=== PATIENT | female | born 1945 | race Caucasian/White ===

== ENCOUNTER 2025-07-29 08:04 | Inpatient (IN) | payer MEDICARE ==
[2025-07-29 09:41] LABS: Hematocrit 38.7 % (34.1-44.9); Hemoglobin 12.5 g/dL (11.2-15.7); Mean Corpuscular Hemoglobin 27.4 pg (25.6-32.2); Mean Corpuscular Hgb Concent. 32.3 g/dL (32.2-35.5); Platelet Count 434 x10^3/uL (182-369); Red Blood Count 4.57 x10^6/uL (3.93-5.22); White Blood Count 9.2 x10^3/uL (3.98-10.04)
[2025-07-29] MEDS ORDERED: Docusate Sodium 100 MG PO PRN (09:54)
[2025-07-29] MEDS ORDERED: TYLENOL 325 MG PO PRN (09:54)
[2025-07-29] MEDS ORDERED: Zofran 4 MG/2 ML VIAL IV PRN (09:54)
[2025-07-29 10:03] LABS: Calcium 9.2 mg/dL (8.4-10.2); Carbon Dioxide 25.0 mmol/L (22-30); Creatinine 1 0.61 mg/dL (0.52-1.04); EST GLOMERULAR FILTRATION RATE 92.0 ML/MIN; Glucose 230.0 mg/dL (74-106); Potassium 4.2 mmol/L (3.5-5.1); SGOT/AST 21.0 U/L (14-36); SGPT/ALT 15.0 U/L (0-35); Total Protein 7.7 g/dL (6.3-8.2)
[2025-07-29] MEDS: MORPHINE SULFATE 2 MG INJ IV PRN (10:11)
[2025-07-29] MEDS: Protonix 40MG Tablet PO SCH (10:12)
[2025-07-29] MEDS: Zestril 10 MG PO SCH (11:41)
[2025-07-29] MEDS ORDERED: Versed 2 MG/2 ML Injection ONE (12:32)
[2025-07-29] MEDS ORDERED: SUBLIMAZE 100 MCG/2 ML ONE (12:32)
[2025-07-29] MEDS ORDERED: ROCURONIUM BROMIDE IV ONE (12:33)
[2025-07-29] MEDS ORDERED: Zofran 4 MG/2 ML VIAL ONE (12:33)
[2025-07-29] MEDS ORDERED: Xylocaine-Mpf 2% 5 Ml Vial ONE (12:33)
[2025-07-29] MEDS ORDERED: propofoL IV ONE (12:33)
[2025-07-29] MEDS ORDERED: EXPAREL 133 MG/10 ML VIAL IJ ONE (12:37)
[2025-07-29] MEDS ORDERED: Marcaine Mpf 0.5% Vial 30 Ml ONE (12:37)
[2025-07-29] MEDS ORDERED: Epinephrine Preservative Free 1 MG/ML ONE (12:40)
[2025-07-29] MEDS ORDERED: Naropin 0.5% 30 ML VIAL ONE (12:40)
[2025-07-29] MEDS ORDERED: BRIDION 200MG/2ML IV ONE (13:22)
[2025-07-29] MEDS ORDERED: Ephedrine Sulfate 50 MG/ML ONE (13:22)
--- NOTE | 2025-07-29 13:59 | PCM.HP ---
History of Present Illness - Chief Complaint Chief Complaint: fractured ankle right Date: 07/29/25 History of Present Illness: is a 79 year old female with pmhx of dementia, strokes, cataracts, Type II DM, cirrhosis, and obesity. She is a direct admit today by podiatry for right ankle revision. The plan is for surgery today. Post op she will go to rehab. She denies any further concerns today other than right ankle pain. IVF started today prior to procedure by OR. - Review of Systems Constitutional: No Fever, No Chills Eyes: No Symptoms Ears, Nose, & Throat: No Symptoms Respiratory: No Cough, No Short Of Breath Cardiac: No Chest Pain, No Edema, No Syncope Abdominal/Gastrointestinal: No Abdominal Pain, No Nausea, No Vomiting, No Diarrhea Genitourinary Symptoms: No Dysuria Musculoskeletal: Joint Pain (Right ankle), No Back Pain, No Neck Pain Skin: No Rash Neurological: No Dizziness, No Focal Weakness, No Sensory Changes Psychological: No Symptoms Endocrine: No Symptoms Hematologic/Lymphatic: No Symptoms Immunological/Allergic: No Symptoms Medications & Allergies Home Medications: Home Medication List Ketorolac Trometh 10 mg Tab [TORAdol 10 MG TABLET] 10 mg PO TID 5 Days #15 tablet 07/20/25 [Rx Confirmed 07/26/25] Aspirin EC 325 mg [Ecotrin 325 MG] 325 mg PO DAILY 07/29/25 [History Confirmed 07/29/25] Allergies/Adverse Reactions: Allergies Allergy/AdvReac Type Severity Reaction Status Date / Time No Known Drug Allergies Allergy Verified 07/26/25 09:49 - Past Medical History Past Medical History: Yes Neurological History: Dementia, Stroke ENT History: Cataracts Cardiac History: No Pertinent History Respiratory History: No Pertinent History Endocrine Medical History: Diabetes Type II Musculoskelatal History: Fractures GI Medical History: Cirrhosis History: No Pertinent History Pyscho-Social History: No Pertinent History Reproductive Disorders: No Pertinent History - Past Surgical History Past Surgical History: Yes Neuro Surgical History: No Pertinent History Cardiac History: No Pertinent History Respiratory Surgery: No Pertinent History GI Surgical History: Cholecystectomy Genitourinary Surgical Hx: No Pertinent History Musculskeletal Surgical Hx: No Pertinent History Female Surgical History: Hysterectomy Significant Family History: no pertinent family hx - Social History Smoking Status: Never smoker Exposure to second hand smoke: No Alcohol: None Drug Use: none - Social Determinants of Health Will the patient participate in the screening: Yes Do you worry about a steady place to live?: No Do you have any problems with any of the following?: No known problems In the past 12 months,have you had to go without utilities?: No Have you or anyone in your house had to go without enough: No Transportation Issues: No Has anyone in your support network made you feel unsafe?: No Does the patient want assistance with any of the above?: No - Physical Exam Vital Signs: Vital Signs - 24 hr Temp Pulse Resp BP Pulse Ox 07/29/25 09:54 187/76 07/29/25 09:49 97.9 F 83 96 07/29/25 08:46 97.9 F 83 96 07/29/25 08:42 97.9 F 83 96 General Appearance: no apparent distress, alert Neurologic Exam: alert, oriented x 3, cooperative, normal mood/affect, nml c erebellar function, nml station & gait, sensation nml, No motor deficits Eye Exam: PERRL/EOMI, eyes nml inspection Ears, Nose, Throat Exam: normal ENT inspection, TMs normal, pharynx normal, moist mucous membranes Neck Exam: normal inspection, non-tender, supple, full range of motion Respiratory Exam: normal breath sounds, lungs clear, No respiratory distress Cardiovascular Exam: regular rate/rhythm, normal heart sounds, normal peripheral pulses Gastrointestinal/Abdomen Exam: soft, normal bowel sounds, No tenderness, No mass Back Exam: normal inspection, normal range of motion, No CVA tenderness, No vertebral tenderness Extremity Exam: normal inspection, pelvis stable, limited range of motion (right ankle), tenderness (right ankle) Skin Exam: normal color, warm, dry, No rash Lymphatic Exam: No adenopathy Results - Labs Lab/Micro Results: Lab Results-Last 24 Hours 07/29/25 07/29/25 07/29/25 Range/Units 09:03 09:03 11:01 WBC 9.2 (3.98-10.04) x10^3/uL RBC 4.57 (3.93-5.22) x10^6/uL Hgb 12.5 (11.2-15.7) g/dL Hct 38.7 (34.1-44.9) % MCV 84.7 (79.4-94.8) fL MCH 27.4 (25.6-32.2) pg MCHC 32.3 (32.2-35.5) g/dL RDW 13.0 (11.7-14.4) % Plt Count 434 H (182-369) x10^3/uL MPV 9.8 (9.4-12.3) fL Sodium 142 (135-145) mmol/L Potassium 4.2 (3.5-5.1) mmol/L Chloride 106 (98-107) mmol/L Carbon Dioxide 25 (22-30) mmol/L Anion Gap 15.5 H (5-15) MEQ/L BUN 21 H (7-17) mg/dL Creatinine 0.61 (0.52-1.04) mg/dL Estimated GFR 92.0 ML/MIN Glucose 230 H (74-106) mg/dL POC Glucometer 192 H (74 to 106) mg/dL Calcium 9.2 (8.4-10.2) mg/dL Total Bilirubin 0.60 (0.2-1.3) mg/dL AST 21 (14-36) U/L ALT 15 (0-35) U/L Alkaline Phosphatase 118 (38-126) U/L Serum Total Protein 7.7 (6.3-8.2) g/dL Albumin 4.2 (3.5-5.0) g/dL Prealbumin 12.58 L (17.6-36.0) mg/dL Accuchecks Date 07/29/25 Date 07/29/25 Time 11:46 - Radiology Impressions Radiology Exams & Impressions: Radiology Procedures Category Date Time Status ANKLE (3 VIEWS) Routine Exams 07/29/25 08:33 Ordered CHEST 1 VIEW (PORTABLE) Urgent Exams 07/29/25 12:22 Ordered FLUOROSCOPY UP TO 1 HR Routine Exams 07/29/25 08:33 Ordered Assessment/Plan (1) Bimalleolar ankle fracture Current Visit: No Status: Acute Qualifiers: Encounter type: subsequent encounter Laterality: right Assessment & Plan: - Revision per podiatry- surgery scheduled today - Podiatry consult - Narcotic pain medication IV as pt is currently NPO - PT eval and treat- post OP Code(s): S82.843A - DISPLACED BIMALLEOLAR FRACTURE OF UNSP LOWER LEG, INIT (2) Type II diabetes mellitus Current Visit: Yes Status: Chronic Qualifiers: Diabetes mellitus intermodal dispatcher insulin use: without intermodal dispatcher use Diabetes mellitus complication detail: with cataract Assessment & Plan: - A1C 11.18 on 07/22/25 and pt is not taking any diabetic meds at home- will need to d/c with insulin until less glucose toxic- uncontrolled - Diabetic education provided however pt has dementia - Plan is to d/c to rehab when able to discharge - Accucheck AC/HS - Humalog s/s (3) Dehydration Current Visit: Yes Status: Acute Assessment & Plan: - Anion gap 15.5 - IVF started by OR Code(s): E86.0 - DEHYDRATION (4) HTN (hypertension) Current Visit: Yes Status: Acute Assessment & Plan: - 2:2 pain? - Narcotic pain med- IV for now as NPO - Lisinopril started as pain medication did not bring it down much VTE: SCD's PPI: Protonix Next of KIN: Daughter- Yareli Paez [phone] Code status: SCO/DNR D/C plan: per podiatry Plan of care time > 45 minutes Code(s): I10 - ESSENTIAL (PRIMARY) HYPERTENSION
--- NOTE | 2025-07-29 14:32 | XRAY ---
Indication: Right ORIF surgery by malleolar fracture and arthroscopy. Intraoperative fluoroscopy provided for 4 minute 11 seconds. 20 digital spot images submitted for interpretation ultimately demonstrates ORIF surgery of bimalleolar fractures with intact fixation hardware. Both fracture apposition/alignment near anatomic. Correlate with intraoperative findings/report.
[2025-07-29] MEDS ORDERED: DEXMEDETOMIDINE 80 MCG/20ML-NS IV ONE (14:35)
--- NOTE | 2025-07-29 15:20 | XRAY ---
Indication: detention placement. Comparison: None Portable chest inflated and clear. Heart not enlarged. Bony thorax intact with osteopenia, mild degenerative changes, and minimal dextroscoliosis. Impression: Nonacute chest with chronic bony findings.
--- NOTE | 2025-07-29 15:22 | XRAY ---
Four minutes and 11 seconds of fluoroscopy was used in surgery for a right ORIF surgery by malleolar fracture and arthroscopy.
[2025-07-29] MEDS ORDERED: CEFOXITIN 2 GM/100 ML NACL IVPB 2 GM/100 ML IVPB IV ONE (15:33)
[2025-07-29] MEDS ORDERED: Lactated Ringers 1,000 ML IV ONE (15:34)
[2025-07-29] MEDS: Levofloxacin 500 MG Tablet PO SCH (17:59)
[2025-07-30] MEDS: APRESOLINE 20 MG/ML INJ IV ONE (00:04)
[2025-07-30 05:41] LABS: Hematocrit 37.2 % (34.1-44.9); Hemoglobin 11.5 g/dL (11.2-15.7); Mean Corpuscular Hemoglobin 26.9 pg (25.6-32.2); Mean Corpuscular Hgb Concent. 30.9 g/dL (32.2-35.5); Platelet Count 393 x10^3/uL (182-369); Red Blood Count 4.28 x10^6/uL (3.93-5.22); White Blood Count 12.6 x10^3/uL (3.98-10.04)
[2025-07-30 06:04] LABS: Calcium 8.6 mg/dL (8.4-10.2); Carbon Dioxide 24.0 mmol/L (22-30); Creatinine 1 0.66 mg/dL (0.52-1.04); EST GLOMERULAR FILTRATION RATE 90.3 ML/MIN; Glucose 157.0 mg/dL (74-106); Potassium 3.6 mmol/L (3.5-5.1); SGOT/AST 24.0 U/L (14-36); SGPT/ALT 17.0 U/L (0-35); Total Protein 6.9 g/dL (6.3-8.2)
--- NOTE | 2025-07-30 06:46 | PCM.CONS ---
Podiatry HPI - Consult Date of Consultation Date: 07/29/25 Reason for Consult: Acute trimalleolar fracture from [place] right ankle, dementia Consulting Provider: RADHA PAGAN DPM - [facility] History of Present Illness: Velma is a very plesant 79-year-old female with a history of subjective stroke and diminished memory presents to our emergency department on July 20, 2025, for evaluation of pain in her right ankle. She explains that while descending the steps on earlier that day, her foot got caught on the edge of one step, causing her to fall down three steps. She hit the back of her head but did not lose consciousness and has no neck pain. The cervical spine has been clinically cleared. The patient describes her right ankle pain as a 6 out of 10, worsening with movement and weight-bearing. A CT scan of the head was ordered, but she declined it, expressing that she only wants her ankle treated. She is not on any blood thinners, and her daughter in law is at bedside. They have no other complaints or concerns at this time.The fall was mechanical and not associated with any neurological or cardiovascular symptoms. There is no chest pain, shortness of breath, nausea, vomiting, diaphoresis, or any numbness, tingling, or weakness. Plan for surgery today for ORIF. Medications & Allergies Home Medications: Home Medication List Ketorolac Trometh 10 mg Tab [TORAdol 10 MG TABLET] 10 mg PO TID 5 Days #15 tablet 07/20/25 [Rx Confirmed 07/26/25] Aspirin EC 325 mg [Ecotrin 325 MG] 325 mg PO DAILY 07/29/25 [History Confirmed 07/29/25] Allergies/Adverse Reactions: Allergies Allergy/AdvReac Type Severity Reaction Status Date / Time No Known Drug Allergies Allergy Verified 07/26/25 09:49 - Past Medical History Past Medical History: Yes Neurological History: Dementia, Stroke ENT History: Cataracts Cardiac History: No Pertinent History Respiratory History: No Pertinent History Endocrine Medical History: Diabetes Type II Musculoskelatal History: Fractures GI Medical History: Cirrhosis History: No Pertinent History Pyscho-Social History: No Pertinent History Reproductive Disorders: No Pertinent History - Past Surgical History Past Surgical History: Yes Neuro Surgical History: No Pertinent History Cardiac History: No Pertinent History Respiratory Surgery: No Pertinent History GI Surgical History: Cholecystectomy Genitourinary Surgical Hx: No Pertinent History Musculskeletal Surgical Hx: No Pertinent History Female Surgical History: Hysterectomy Significant Family History: no pertinent family hx - Social History Smoking Status: Never smoker Exposure to second hand smoke: No Alcohol: None Drug Use: none - Social Determinants of Health Will the patient participate in the screening: Yes Do you worry about a steady place to live?: No Do you have any problems with any of the following?: No known problems In the past 12 months,have you had to go without utilities?: No Have you or anyone in your house had to go without enough: No Transportation Issues: No Has anyone in your support network made you feel unsafe?: No Does the patient want assistance with any of the above?: No Physical Exam - Narrative Narrative Physical Exam: Ecchymosis present medially, laterally, and posteriorly. No open wounds identified; skin intact though without notable tension over the medial malleolus. Palpation demonstrates significant tenderness to the medial malleolus, distal fibula/lateral malleolus, and posterior tibia/posterior malleolus. Crepitus present with gentle manipulation. Compartments soft and compressible. Range of motion not tested due to pain. Gross instability suspected. Neurovascular exam: dorsalis pedis and posterior tibial pulses palpable, capillary refill <2 seconds. Sensation intact to superficial peroneal, deep peroneal, tibial, and sural nerve distributions. Motor exam deferred secondary to pain but gross toe movement observed. No proximal fibular tenderness appreciated. Results - Labs Lab/Micro Results: Lab Results-Last 24 Hours 07/29/25 07/29/25 07/29/25 Range/Units 09:03 09:03 11:01 WBC 9.2 (3.98-10.04) x10^3/uL RBC 4.57 (3.93-5.22) x10^6/uL Hgb 12.5 (11.2-15.7) g/dL Hct 38.7 (34.1-44.9) % MCV 84.7 (79.4-94.8) fL MCH 27.4 (25.6-32.2) pg MCHC 32.3 (32.2-35.5) g/dL RDW 13.0 (11.7-14.4) % Plt Count 434 H (182-369) x10^3/uL MPV 9.8 (9.4-12.3) fL Sodium 142 (135-145) mmol/L Potassium 4.2 (3.5-5.1) mmol/L Chloride 106 (98-107) mmol/L Carbon Dioxide 25 (22-30) mmol/L Anion Gap 15.5 H (5-15) MEQ/L BUN 21 H (7-17) mg/dL Creatinine 0.61 (0.52-1.04) mg/dL Estimated GFR 92.0 ML/MIN Glucose 230 H (74-106) mg/dL POC Glucometer 192 H (74 to 106) mg/dL Calcium 9.2 (8.4-10.2) mg/dL Total Bilirubin 0.60 (0.2-1.3) mg/dL AST 21 (14-36) U/L ALT 15 (0-35) U/L Alkaline Phosphatase 118 (38-126) U/L Serum Total Protein 7.7 (6.3-8.2) g/dL Albumin 4.2 (3.5-5.0) g/dL Prealbumin 12.58 L (17.6-36.0) mg/dL 07/29/25 07/29/25 07/30/25 Range/Units 16:52 22:17 05:30 WBC 12.6 H (3.98-10.04) x10^3/uL RBC 4.28 (3.93-5.22) x10^6/uL Hgb 11.5 (11.2-15.7) g/dL Hct 37.2 (34.1-44.9) % MCV 86.9 (79.4-94.8) fL MCH 26.9 (25.6-32.2) pg MCHC 30.9 L (32.2-35.5) g/dL RDW 13.2 (11.7-14.4) % Plt Count 393 H (182-369) x10^3/uL MPV 9.9 (9.4-12.3) fL Sodium (135-145) mmol/L Potassium (3.5-5.1) mmol/L Chloride (98-107) mmol/L Carbon Dioxide (22-30) mmol/L Anion Gap (5-15) MEQ/L BUN (7-17) mg/dL Creatinine (0.52-1.04) mg/dL Estimated GFR ML/MIN Glucose (74-106) mg/dL POC Glucometer 162 H 156 H (74 to 106) mg/dL Calcium (8.4-10.2) mg/dL Total Bilirubin (0.2-1.3) mg/dL AST (14-36) U/L ALT (0-35) U/L Alkaline Phosphatase (38-126) U/L Serum Total Protein (6.3-8.2) g/dL Albumin (3.5-5.0) g/dL Prealbumin (17.6-36.0) mg/dL 07/30/25 Range/Units 05:30 WBC (3.98-10.04) x10^3/uL RBC (3.93-5.22) x10^6/uL Hgb (11.2-15.7) g/dL Hct (34.1-44.9) % MCV (79.4-94.8) fL MCH (25.6-32.2) pg MCHC (32.2-35.5) g/dL RDW (11.7-14.4) % Plt Count (182-369) x10^3/uL MPV (9.4-12.3) fL Sodium 137 (135-145) mmol/L Potassium 3.6 (3.5-5.1) mmol/L Chloride 102 (98-107) mmol/L Carbon Dioxide 24 (22-30) mmol/L Anion Gap 14.5 (5-15) MEQ/L BUN 14 (7-17) mg/dL Creatinine 0.66 (0.52-1.04) mg/dL Estimated GFR 90.3 ML/MIN Glucose 157 H (74-106) mg/dL POC Glucometer (74 to 106) mg/dL Calcium 8.6 (8.4-10.2) mg/dL Total Bilirubin 0.70 (0.2-1.3) mg/dL AST 24 (14-36) U/L ALT 17 (0-35) U/L Alkaline Phosphatase 105 (38-126) U/L Serum Total Protein 6.9 (6.3-8.2) g/dL Albumin 3.8 (3.5-5.0) g/dL Prealbumin (17.6-36.0) mg/dL Accuchecks Date 07/29/25 Date 07/29/25 Time 11:46 - Radiology Impressions Radiology Exams & Impressions: Radiology Procedures Category Date Time Status ANKLE (3 VIEWS) Routine Exams 07/29/25 08:33 Completed CHEST 1 VIEW (PORTABLE) Urgent Exams 07/29/25 12:22 Completed FLUOROSCOPY UP TO 1 HR Routine Exams 07/29/25 08:33 Completed - Other Procedures and Tests Respiratory Therapy 07/29/25 17:15 Oxygen Nasal Cannula 3 lpm Assessment/Plan (1) Trimalleolar fracture of ankle, closed Current Visit: Yes Status: Acute Assessment & Plan: ORIF right ankle with syndesmotic reduction today in OR The patient will be admitted for management of the right trimalleolar ankle fracture under care of Dr. Jaime and Senait SMALL. Given the patients current non-ambulatory status and baseline dementia, formal rehabilitation placement will be required for safety and mobility training. Pain control will be continued as prescribed, and DVT prophylaxis will be maintained per orders. Infection prophylaxis as prescribed. The patient is to remain strictly non-weightbearing on the right lower extremity. Skin integrity and swelling will be closely monitored outpatient with follow up. Case management and social work will be consulted to assist with discharge planning and coordination of rehabilitation placement. Will follow with you. Code(s): S82.853A - DISPLACED TRIMALLEOLAR FRACTURE OF UNSP LOWER LEG, INIT (2) Dementia Current Visit: Yes Status: Acute Code(s): F03.90 - UNSP DEMENTIA, UNSP SEVERITY, WITHOUT BEH/PSYCH/MOOD/ANX (3) Dehydration Current Visit: Yes Status: Acute Code(s): E86.0 - DEHYDRATION (4) HTN (hypertension) Current Visit: Yes Status: Acute Code(s): I10 - ESSENTIAL (PRIMARY) HYPERTENSION (5) Type II diabetes mellitus Current Visit: Yes Status: Chronic Qualifiers: Diabetes mellitus insurance law specialist insulin use: without insurance law specialist use Diabetes mellitus complication detail: with cataract (6) CVA (cerebral vascular accident) Current Visit: No Status: Acute Code(s): I63.9 - CEREBRAL INFARCTION, UNSPECIFIED
[2025-07-30] MEDS: Oxy-IR 5 MG PO PRN (08:52)
[2025-07-30] MEDS: Ecotrin 325 MG PO SCH (10:33)
--- NOTE | 2025-07-30 10:39 | OP ---
SURGERY DATE/TIME: 07/29/2025 [id number] PREOPERATIVE DIAGNOSES: 1) Right trimalleolar ankle fracture. 2) Acute disruption syndesmosis. 3) Right ankle pain. 4) Dementia. 5) Uncontrolled diabetes mellitus. 6) Difficulty with ambulation. POSTOPERATIVE DIAGNOSES: 1) Right trimalleolar ankle fracture. 2) Acute disruption syndesmosis. 3) Right ankle pain. 4) Dementia. 5) Uncontrolled diabetes mellitus. 6) Difficulty with ambulation. PROCEDURES: 1) Open reduction and internal fixation trimalleolar fracture equivalent. 2) Acute syndesmotic open reduction and internal fixation. 3) Ankle arthroscopy with limited synovectomy. SURGEON: Krishna Wilson MD [employer] REPAIRER: LEELEE Magdaleno ANESTHESIA: General plus a preoperative femoral and popliteal block; femoral with Exparel and popliteal without. HEMOSTASIS: A thigh tourniquet set to 300 mmHg for a total of 68 total tourniquet minutes. ESTIMATED BLOOD LOSS: Approximately 10 mL. MATERIALS: Right 6-hole distal lateral fibular plate with one 3.5 x 45 and 3.5 x 50 syndesmotic screw as well as cannulated 4.0 x 70 x2, half-thread medial malleolar screws. 4-0 Monocryl, 3-0 nylon. INJECTABLES: See Anesthesia report for details. INDICATIONS: The patient is a very pleasant 79-year-old female who presented to my service after a fall which did not remember the circumstances secondary to her dementia. Patient had a significant amount of bruising and pain to the ankle and was brought in by her daughter. She had not been established with a primary since she had moved from, I believe it is [place], and was under the impression she was in very good health other than the recent stroke and developing dementia. From that standpoint, labs were obtained demonstrating some significant indications of uncontrolled diabetes with a hemoglobin A1c of 11. However, given the patient's ambulatory status and significant displacement with the ankle fracture, we decided to proceed with surgical intervention. Discussion with the daughter, who is her power of cranberry farm supervisor, was held in regards to options and we have decided for an inpatient consultation where there was a fracture through trauma as well as dementia in order to get her placed in a rehab facility temporarily. From that standpoint, patient is impatient at this time. Her and her daughter were made aware of all risks, complications, and benefits of surgical intervention at this time, including but not limited to, infection, hematoma, seroma, possibility of delayed wound healing, non-wound healing, possibility of delayed bone healing, possibility of non-union, possible irritating hardware, and possible need for further surgical intervention at a later date. No guarantees were provided as to the outcome of surgical intervention. Plenty of time was allowed for the patient to ask questions, which were answered to her apparent satisfaction. It is at this time we decided to proceed. DESCRIPTION OF PROCEDURE AND FINDINGS: The patient was brought into the PACU and provided a popliteal and femoral block. See Anesthesia report for details. At this time, patient was brought into the operating room, placed on the operating room table in the supine position. General anesthesia was administered and the patient was adequately sedated. Once the patient was sedated, a well-padded thigh tourniquet was applied to the patient's right thigh. The right lower extremity was prepped and draped in the typical sterile fashion and lowered onto the surgical field. Attention was directed, under fluoroscopic guidance, to the lateral malleolar fracture where an Esmarch was utilized to exsanguinate the leg and the tourniquet was set to 300 mmHg. A linear incision down the midline of the fibula was carried utilizing a 10 blade down to the level of bone, very quickly identifying the fracture site, which showed a significant amount of hematoma and proximal displacement. With the proximal displacement and the hematoma, this was distracted and a dental pick as well as copious amounts of sterile saline were utilized to flush the surgical site. Once this was performed, a lobster claw reduction forceps were utilized to close this bone down. This was checked under a mortise view as well as a lateral view to assess the posterior spike of the supination external rotation fracture, which was deemed to be in an adequate position. From that standpoint, once the position was held, a 6-hole distal lateral fibular locking plate was then placed over the site and this was checked. Distal cortical, then locking screws were placed, and then once again, proximal cortical and then locking screws were placed, fixating the fracture in an adequate position. Once this was performed, this was checked under fluoroscopic guidance and deemed to be near anatomic. From that standpoint, percutaneous pinning of the medial malleolus was then attempted, however, this was deemed to be difficult secondary to the comminution of the articular cartilage. Decision was made to go forward with arthroscopy where an insufflation took place first. An 11-blade was utilized to make an incision at the anteromedial aspect of the ankle, just medial to the tibialis anterior tendon. This was deepened to the level of the capsule. A 30-degree x 4.0 mm camera was then introduced, very quickly running into some limited synovitis of the medial gutter which was then shaved after establishing an anterolateral portal. Once this anterolateral portal was established, the 3.4 mm shaver was then utilized to debride this area. The hematoma over the medial malleolar fracture site was identified and the comminution was then shortly identified. Once this was cleaned utilizing the 3.4 mm shaver of any remaining synovitis or hematoma, the articular cartilage fragments were identified. While keeping the scope inside the joint, the K-wires were backed out and then compression was held utilizing a freer underneath the distal aspect of the medial malleolus, and then pinning this at the anterior colliculus of the medial malleolus. Once this was performed, significant improvement under direct visualization of the medial malleolar fragment was identified and the K-wires were then advanced. Two 4.0 x 70 partially threaded headed screws, the one at which the anterior colliculus was placed a washer, were advanced and getting excellent compression through this site. Following this, copious amounts of sterile saline were utilized to flush the surgical site. In the lateral incision, 4-0 Monocryl was utilized to coapt the subcutaneous skin edges and then 3-0 nylon was utilized in an alternating horizontal mattress and simple type fashion for skin closure. A dressing consisting of Betadine, Adaptic, 4 x 4, Kerlix, ABD and a well-padded posterior splint with sugar tong was applied to the patient's right lower extremity with the foot orthogonal relative to the longitudinal axis of the leg. Patient was then reversed from anesthesia and returned to the postoperative anesthesia care unit with vital signs stable and vascular status intact. The patient handled the anesthesia, as well as the procedure, without significant complication. Postoperative orders are as indicated in the patient's discharge chart.
--- NOTE | 2025-07-30 12:20 | PCM.CONS ---
Podiatry HPI - Consult Date of Consultation Date: 07/30/25 Reason for Consult: 1 day status post surgical treatment for acute trimalleolar fracture from trauma right ankle, dementia Consulting Provider: ANDREW PANDA NP - [facility] History of Present Illness: is a 79 year old female Who is inpatient 1 day status post ORIF right ankle with syndesmotic reduction. Past medical history significant for subjective stroke and diminished memory. At this time she presents alert and oriented and answering questions appropriately reporting minimal pain to the right lower extremity. Denied any signs or symptoms consistent with local or systemic infection. Denied any chest pain, shortness of breath, nausea, vomiting, diaphoresis, or neuropathic sensation/pain Medications & Allergies Home Medications: Home Medication List Ketorolac Trometh 10 mg Tab [TORAdol 10 MG TABLET] 10 mg PO TID 5 Days #15 tablet 07/20/25 [Rx Confirmed 07/26/25] Aspirin EC 325 mg [Ecotrin 325 MG] 325 mg PO DAILY 07/29/25 [History Confirmed 07/29/25] Allergies/Adverse Reactions: Allergies Allergy/AdvReac Type Severity Reaction Status Date / Time No Known Drug Allergies Allergy Verified 07/26/25 09:49 - Past Medical History Past Medical History: Yes Neurological History: Dementia, Stroke ENT History: Cataracts Cardiac History: No Pertinent History Respiratory History: No Pertinent History Endocrine Medical History: Diabetes Type II Musculoskelatal History: Fractures GI Medical History: Cirrhosis History: No Pertinent History Pyscho-Social History: No Pertinent History Reproductive Disorders: No Pertinent History - Past Surgical History Past Surgical History: Yes Neuro Surgical History: No Pertinent History Cardiac History: No Pertinent History Respiratory Surgery: No Pertinent History GI Surgical History: Cholecystectomy Genitourinary Surgical Hx: No Pertinent History Musculskeletal Surgical Hx: No Pertinent History Female Surgical History: Hysterectomy Significant Family History: no pertinent family hx - Social History Smoking Status: Never smoker Exposure to second hand smoke: No Alcohol: None Drug Use: none - Social Determinants of Health Will the patient participate in the screening: Yes Do you worry about a steady place to live?: No Do you have any problems with any of the following?: No known problems In the past 12 months,have you had to go without utilities?: No Have you or anyone in your house had to go without enough: No Transportation Issues: No Has anyone in your support network made you feel unsafe?: No Does the patient want assistance with any of the above?: No Physical Exam - General General Appearance: no apparent distress, alert (Right lower extremity in posterior splint with sugar-tong. Dressing to remain in place until 1 week follow-up. Palpable dorsalis pedis at +2 with cap refill less than 3 seconds. Diffuse ecchymosis noted throughout the toes. No noted significant swelling.) - Narrative Narrative Physical Exam: Podiatry Physical Exam Results - Labs Lab/Micro Results: Lab Results-Last 24 Hours 07/29/25 07/29/25 07/30/25 Range/Units 16:52 22:17 05:30 WBC 12.6 H (3.98-10.04) x10^3/uL RBC 4.28 (3.93-5.22) x10^6/uL Hgb 11.5 (11.2-15.7) g/dL Hct 37.2 (34.1-44.9) % MCV 86.9 (79.4-94.8) fL MCH 26.9 (25.6-32.2) pg MCHC 30.9 L (32.2-35.5) g/dL RDW 13.2 (11.7-14.4) % Plt Count 393 H (182-369) x10^3/uL MPV 9.9 (9.4-12.3) fL Sodium (135-145) mmol/L Potassium (3.5-5.1) mmol/L Chloride (98-107) mmol/L Carbon Dioxide (22-30) mmol/L Anion Gap (5-15) MEQ/L BUN (7-17) mg/dL Creatinine (0.52-1.04) mg/dL Estimated GFR ML/MIN Glucose (74-106) mg/dL POC Glucometer 162 H 156 H (74 to 106) mg/dL Calcium (8.4-10.2) mg/dL Total Bilirubin (0.2-1.3) mg/dL AST (14-36) U/L ALT (0-35) U/L Alkaline Phosphatase (38-126) U/L Serum Total Protein (6.3-8.2) g/dL Albumin (3.5-5.0) g/dL 07/30/25 07/30/25 07/30/25 Range/Units 05:30 08:02 11:29 WBC (3.98-10.04) x10^3/uL RBC (3.93-5.22) x10^6/uL Hgb (11.2-15.7) g/dL Hct (34.1-44.9) % MCV (79.4-94.8) fL MCH (25.6-32.2) pg MCHC (32.2-35.5) g/dL RDW (11.7-14.4) % Plt Count (182-369) x10^3/uL MPV (9.4-12.3) fL Sodium 137 (135-145) mmol/L Potassium 3.6 (3.5-5.1) mmol/L Chloride 102 (98-107) mmol/L Carbon Dioxide 24 (22-30) mmol/L Anion Gap 14.5 (5-15) MEQ/L BUN 14 (7-17) mg/dL Creatinine 0.66 (0.52-1.04) mg/dL Estimated GFR 90.3 ML/MIN Glucose 157 H (74-106) mg/dL POC Glucometer 166 H 156 H (74 to 106) mg/dL Calcium 8.6 (8.4-10.2) mg/dL Total Bilirubin 0.70 (0.2-1.3) mg/dL AST 24 (14-36) U/L ALT 17 (0-35) U/L Alkaline Phosphatase 105 (38-126) U/L Serum Total Protein 6.9 (6.3-8.2) g/dL Albumin 3.8 (3.5-5.0) g/dL Accuchecks Date 07/30/25 Date 07/30/25 Time 11:50 Time 08:03 - Radiology Impressions Radiology Exams & Impressions: Radiology Procedures Category Date Time Status ANKLE (3 VIEWS) Routine Exams 07/29/25 08:33 Completed CHEST 1 VIEW (PORTABLE) Urgent Exams 07/29/25 12:22 Completed FLUOROSCOPY UP TO 1 HR Routine Exams 07/29/25 08:33 Completed - Other Procedures and Tests Respiratory Therapy 07/29/25 17:15 Oxygen Nasal Cannula 3 lpm Assessment/Plan (1) Dehydration Current Visit: Yes Status: Acute Code(s): E86.0 - DEHYDRATION (2) Dementia Current Visit: Yes Status: Acute Code(s): F03.90 - UNSP DEMENTIA, UNSP SEVERITY, WITHOUT BEH/PSYCH/MOOD/ANX (3) HTN (hypertension) Current Visit: Yes Status: Acute Code(s): I10 - ESSENTIAL (PRIMARY) HYPERTENSION (4) Trimalleolar fracture of ankle, closed Current Visit: Yes Status: Acute Assessment & Plan: 1 day status post ORIF right ankle with syndesmotic reduction Remain nonambulatory at this time. Continue infection prophylaxis, pain medication regimen, and DVT prophylaxis regimen Pending medical team clearance for discharge may transfer to rehabilitation facility. Code(s): S82.853A - DISPLACED TRIMALLEOLAR FRACTURE OF UNSP LOWER LEG, INIT (5) Type II diabetes mellitus Current Visit: Yes Status: Chronic Qualifiers: Diabetes mellitus halfway insulin use: without intermediate card tender use Diabetes mellitus complication detail: with cataract (6) CVA (cerebral vascular accident) Current Visit: No Status: Acute Code(s): I63.9 - CEREBRAL INFARCTION, UNSPECIFIED
--- NOTE | 2025-07-30 15:03 | PCM.NOTE ---
Date and Time: 07/30/25 1456 Subjective Assessment: 07/29/25 is a 79 year old female with pmhx of dementia, strokes, cataracts, Type II DM, cirrhosis, and obesity. She is a direct admit today by podiatry for right ankle revision. The plan is for surgery today. Post op she will go to rehab. She denies any further concerns today other than right ankle pain. IVF started today prior to procedure by OR. 07/30/25 Pt resting in bed. RLE wrapped. Per podiatry she can d/c to rehab and will need to f/u in 1 week to have ankle rewrapped. Pt weaned off oxygen today. Continue IS. Pt to eval for rehab needs. A1C 11.18 and will need IV insulin at d/c. Pain well controlled. Pt denies any further concerns at this time. CM working on rehab placement. - Review of Systems Constitutional: No Fever, No Chills Eyes: No Symptoms Ears, Nose, & Throat: No Symptoms Respiratory: No Cough, No Short Of Breath Cardiac: No Chest Pain, No Edema, No Syncope Abdominal/Gastrointestinal: No Abdominal Pain, No Nausea, No Vomiting, No Diarrhea Genitourinary Symptoms: No Dysuria Musculoskeletal: Joint Pain (right ankle pain), No Back Pain, No Neck Pain Skin: No Rash Neurological: No Dizziness, No Focal Weakness, No Sensory Changes Psychological: No Symptoms Endocrine: No Symptoms Hematologic/Lymphatic: No Symptoms Immunological/Allergic: No Symptoms Objective Exam General Appearance: no apparent distress, alert, obese Neurologic Exam: alert, oriented x 3, cooperative, normal mood/affect, nml cerebellar function, sensation nml, No motor deficits Skin Exam: normal color, warm, dry Wound Assessment: Skin/Wound Assessment Wound/Incision Assessment Start: 07/29/25 09:03 Text: Status: Active Freq: Q6H Protocol: Document 07/30/25 09:00 MERT (Rec: 07/30/25 09:01 REGINACAIO [id number]) Wound/Incision Assessment Right Ankle Wound Assessment Shift Assessment Wound Type Incision Wound Stage Non Pressure Wound Dressing Status Dry & Intact Drainage Amount None Comment POD #1, LEW incision, surgical dressing in place, CDI Wound Photo Photo Taken No Eye Exam: PERRL, EOMI, eyes nml inspection Ears, Nose, Throat Exam: normal ENT inspection, pharynx normal, moist mucous membranes Neck Exam: normal inspection, non-tender, supple, full range of motion Respiratory Exam: normal breath sounds, lungs clear, No respiratory distress Cardiovascular Exam: regular rate/rhythm, normal heart sounds Gastrointestinal/Abdomen Exam: soft, No tenderness, No mass Extremity Exam: normal inspection, normal range of motion, limited range of motion (right ankle), tenderness Back Exam: normal inspection, normal range of motion, No CVA tenderness, No vertebral tenderness Pelvic Exam: deferred Rectal Exam: deferred Objective Data Vital Signs: Vital Signs - 24 hr Temp Pulse Resp BP Pulse Ox 07/30/25 11:51 97 F 82 16 147/69 98 07/30/25 07:53 97.7 F 85 15 134/63 99 07/30/25 06:57 97 07/30/25 04:00 97.6 F 89 20 141/65 95 07/29/25 23:20 77 181/74 98 07/29/25 20:38 98 07/29/25 20:00 97.0 F 74 19 164/70 100 07/29/25 19:53 100 07/29/25 17:16 100 07/29/25 15:54 97.9 F 64 22 149/66 100 Pain Assessment - Last Documented Pain Intensity 6 Pain Scale Used 0-10 Pain Scale Intake and Output: Intake & Output 07/28/25 07/29/25 07/30/25 07/31/25 11:59 11:59 11:59 11:59 Intake Total 0 1091 240 Output Total 20 1600 Balance -20 -509 240 Weight 79.9 kg 79.9 kg Lab Results: Lab Results-Last 24 Hours 07/29/25 07/29/25 07/30/25 Range/Units 16:52 22:17 05:30 WBC 12.6 H (3.98-10.04) x10^3/uL RBC 4.28 (3.93-5.22) x10^6/uL Hgb 11.5 (11.2-15.7) g/dL Hct 37.2 (34.1-44.9) % MCV 86.9 (79.4-94.8) fL MCH 26.9 (25.6-32.2) pg MCHC 30.9 L (32.2-35.5) g/dL RDW 13.2 (11.7-14.4) % Plt Count 393 H (182-369) x10^3/uL MPV 9.9 (9.4-12.3) fL Sodium (135-145) mmol/L Potassium (3.5-5.1) mmol/L Chloride (98-107) mmol/L Carbon Dioxide (22-30) mmol/L Anion Gap (5-15) MEQ/L BUN (7-17) mg/dL Creatinine (0.52-1.04) mg/dL Estimated GFR ML/MIN Glucose (74-106) mg/dL POC Glucometer 162 H 156 H (74 to 106) mg/dL Calcium (8.4-10.2) mg/dL Total Bilirubin (0.2-1.3) mg/dL AST (14-36) U/L ALT (0-35) U/L Alkaline Phosphatase (38-126) U/L Serum Total Protein (6.3-8.2) g/dL Albumin (3.5-5.0) g/dL 07/30/25 07/30/25 07/30/25 Range/Units 05:30 08:02 11:29 WBC (3.98-10.04) x10^3/uL RBC (3.93-5.22) x10^6/uL Hgb (11.2-15.7) g/dL Hct (34.1-44.9) % MCV (79.4-94.8) fL MCH (25.6-32.2) pg MCHC (32.2-35.5) g/dL RDW (11.7-14.4) % Plt Count (182-369) x10^3/uL MPV (9.4-12.3) fL Sodium 137 (135-145) mmol/L Potassium 3.6 (3.5-5.1) mmol/L Chloride 102 (98-107) mmol/L Carbon Dioxide 24 (22-30) mmol/L Anion Gap 14.5 (5-15) MEQ/L BUN 14 (7-17) mg/dL Creatinine 0.66 (0.52-1.04) mg/dL Estimated GFR 90.3 ML/MIN Glucose 157 H (74-106) mg/dL POC Glucometer 166 H 156 H (74 to 106) mg/dL Calcium 8.6 (8.4-10.2) mg/dL Total Bilirubin 0.70 (0.2-1.3) mg/dL AST 24 (14-36) U/L ALT 17 (0-35) U/L Alkaline Phosphatase 105 (38-126) U/L Serum Total Protein 6.9 (6.3-8.2) g/dL Albumin 3.8 (3.5-5.0) g/dL Radiology Exams: Radiology Procedures Category Date Time Status ANKLE (3 VIEWS) Routine Exams 07/29/25 08:33 Completed CHEST 1 VIEW (PORTABLE) Urgent Exams 07/29/25 12:22 Completed FLUOROSCOPY UP TO 1 HR Routine Exams 07/29/25 08:33 Completed Medications: Medications Generic Name Dose Route Start Last Admin Trade Name Freq PRN Reason Stop Dose Admin Acetaminophen 650 mg 07/29/25 09:54 Acetaminophen 325 Mg Tablet PO 08/28/25 09:53 Q6H PRN PRN PAIN, FEVER, HEADACHE Aspirin 325 mg 07/30/25 10:00 07/30/25 10:33 Aspirin 325 Mg Tablet.Ec PO 08/29/25 09:59 325 mg DAILY RAVEN Administration Docusate Sodium 100 mg 07/29/25 09:54 Docusate Sodium 100 Mg Capsule PO 08/28/25 09:53 BIDPRN PRN CONSTIPATION Sodium Chloride 1,000 mls @ 30 mls/hr 07/29/25 09:15 07/29/25 09:58 Sodium Chloride 0.9% 1000 Ml IV 08/28/25 09:14 30 mls/hr .Q24H RAVEN Administration Insulin Human Lispro 0 unit 07/29/25 09:54 Insulin Lispro 1 Unit SQ 08/28/25 09:53 UD PRN HYPERGLYCEMIA Levofloxacin 500 mg 07/29/25 18:00 07/30/25 10:33 Levofloxacin 500 Mg Tablet PO 08/07/25 10:01 500 mg DAILY RAVEN Administration Lisinopril 10 mg 07/29/25 11:33 07/30/25 10:33 Lisinopril 10 Mg Tablet PO 08/28/25 11:32 10 mg DAILY RAVEN Administration Morphine Sulfate 2 mg 07/29/25 09:57 07/29/25 10:11 Morphine Sulfate 2 Mg/Ml Inj IV 08/03/25 09:56 2 mg Q4H PRN PRN Administration SEVERE PAIN Ondansetron HCl 4 mg 07/29/25 09:54 Ondansetron Hcl 4 Mg/2 Ml Vial IV 08/28/25 09:53 Q6H PRN PRN NAUSEA/VOMITING Oxycodone HCl 7.5 mg 07/29/25 17:05 07/30/25 14:18 Oxycodone Hcl 5 Mg Ir Tab PO 08/03/25 17:04 7.5 mg Q6H/PRN PRN Administration POST OP PAIN Pantoprazole Sodium 40 mg 07/29/25 10:00 07/30/25 10:33 Protonix (Pantoprazole) 40 Mg Tablet PO 08/28/25 09:59 40 mg DAILY RAVEN Administration Discontinued Medications Generic Name Dose Route Start Last Admin Trade Name Freq PRN Reason Stop Dose Admin Bupivacaine HCl Confirm 07/29/25 12:37 Bupivacaine Hcl/Pf 150 Mg/30 Ml Vial Administered 07/29/25 12:38 Dose 150 mg .ROUTE .STK-MED ONE Bupivacaine Liposome Confirm 07/29/25 12:37 Bupivacaine Liposome/Pf 133 Mg/10 Ml Administered 07/29/25 12:38 Dose 133 mg IJ .STK-MED ONE Dexmedetomidine/Sodium Chloride Confirm 07/29/25 14:35 Dexmedetomidine In 0.9 % Nacl 80 Mcg/20 Ml Vial Administered 07/29/25 14:36 Dose 80 mcg IV .STK-MED ONE Ephedrine Sulfate Confirm 07/29/25 13:22 Ephedrine Sulfate 50 Mg/Ml Administered 07/29/25 13:23 Dose 50 mg .ROUTE .STK-MED ONE Epinephrine HCl Confirm 07/29/25 12:40 Epinephrine 1 Mg/1 Ml Pf Amp 1 Mg/Ml Ml Administered 07/29/25 12:41 Dose 1 mg .ROUTE .STK-MED ONE Fentanyl Citrate Confirm 07/29/25 12:32 Fentanyl Citrate 100 Mcg/2 Ml* Vial Administered 07/29/25 12:33 Dose 100 mcg .ROUTE .STK-MED ONE Hydralazine HCl 10 mg 07/30/25 00:02 07/30/25 00:04 Hydralazine Hcl 20 Mg/Ml Vial IV 07/30/25 00:03 10 mg STAT ONE Administration Cefazolin Sodium 2 gm/ Sodium 100 mls @ 200 mls/hr 07/29/25 12:02 07/29/25 12 :11 Chloride IV 07/29/25 12:31 200 mls/hr ONCALLTOOR ONE Administration Sodium Chloride Confirm 07/29/25 14:41 Sodium Chloride 0.9% 1000 Ml Administered 07/29/25 14:42 Dose 1,000 mls @ ud .ROUTE .STK-MED ONE Cefoxitin Sodium Confirm 07/29/25 15:33 Cefoxitin 2 Gm/100 Ml Nacl Ivpb Administered 07/29/25 15:34 Dose 2 gm in 100 mls @ ud IV .STK-MED ONE Lactated Ringer's Confirm 07/29/25 15:34 Lactated Ringers Administered 07/29/25 15:35 Dose 1,000 mls @ ud IV .STK-MED ONE Lidocaine HCl Confirm 07/29/25 12:33 Lidocaine - Mpf 2% 5 Ml Vial Administered 07/29/25 12:34 Dose 5 ml .ROUTE .STK-MED ONE Midazolam HCl Confirm 07/29/25 12:32 Midazolam Hcl 2 Mg/2 Ml Vial Administered 07/29/25 12:33 Dose 2 mg .ROUTE .STK-MED ONE Ondansetron HCl Confirm 07/29/25 12:33 Ondansetron Hcl 4 Mg/2 Ml Vial Administered 07/29/25 12:34 Dose 4 mg .ROUTE .STK-MED ONE Propofol Confirm 07/29/25 12:33 Propofol 200 Mg/20 Ml Vial Administered 07/29/25 12:34 Dose 200 mg IV .STK-MED ONE Rocuronium [place] Confirm 07/29/25 12:33 Rocuronium [place] 50 Mg/5 Ml Vial Administered 07/29/25 12:34 Dose 50 mg IV .STK-MED ONE Ropivacaine Confirm 07/29/25 12:40 Ropivacaine Hcl 5 Mg/Ml 30ml Vial Administered 07/29/25 12:41 Dose 150 mg .ROUTE .STK-MED ONE Sugammadex Sodium Confirm 07/29/25 13:22 Sugammadex Sodium 200 Mg/2 Ml Vial Administered 07/29/25 13:23 Dose 200 mg IV .STK-MED ONE Multi-Disciplinary Progress Notes: Multi-Disciplinary Progress Notes 07/30/25 10:38 Case Management Note by Mireya Beckham PT ARTURO FAXED TO [facility]. Initialized on 07/30/25 10:38 - END OF NOTE 07/30/25 09:23 Case Management Note by Mireya Beckham REFERRAL FAXED TO [facility]. WAITING TO HEAR BACK. Initialized on 07/30/25 09:23 - END OF NOTE 07/29/25 20:38 Respiratory Note by Valentina White PLACED ON ROOM AIR. SATS 98%. Initialized on 07/29/25 20:38 - END OF NOTE Assessment/Plan (1) Bimalleolar ankle fracture Current Visit: No Status: Acute Qualifiers: Encounter type: subsequent encounter Laterality: right Code(s): S82.843A - DISPLACED BIMALLEOLAR FRACTURE OF UNSP LOWER LEG, INIT (2) Type II diabetes mellitus Current Visit: Yes Status: Chronic Qualifiers: Diabetes mellitus cushion installer insulin use: without longterm use Diabetes mellitus complication detail: with cataract (3) Dehydration Current Visit: Yes Status: Acute Code(s): E86.0 - DEHYDRATION (4) HTN (hypertension) Current Visit: Yes Status: Acute Assessment & Plan: (1) Bimalleolar ankle fracture Current Visit: No Status: Acute Qualifiers: Encounter type: subsequent encounter Laterality: right Assessment & Plan: - Revision per podiatry- surgery scheduled today - Podiatry consult - Narcotic pain medication IV as pt is currently NPO - PT eval and treat- post OP 07/30 - POD #2 - OK per podiatry for pt to d/c to rehab when ready and f/u in 1 week to have ankle rewrapped - CBC, CMP reviewed Code(s): S82.843A - DISPLACED BIMALLEOLAR FRACTURE OF UNSP LOWER LEG, INIT (2) Type II diabetes mellitus Current Visit: Yes Status: Chronic Qualifiers: Diabetes mellitus longterm insulin use: without longterm use Diabetes mellitus complication detail: with cataract Assessment & Plan: - A1C 11.18 on 07/22/25 and pt is not taking any diabetic meds at home- will need to d/c with insulin until less glucose toxic- uncontrolled - Diabetic education provided however pt has dementia - Plan is to d/c to rehab when able to discharge - Accucheck AC/HS - Humalog s/s (3) Dehydration Current Visit: Yes Status: Acute Assessment & Plan: - Anion gap 15.5 - IVF started by OR 07/30 - resolved Code(s): E86.0 - DEHYDRATION (4) HTN (hypertension) Current Visit: Yes Status: Acute Assessment & Plan: - 2:2 pain? - Narcotic pain med- IV for now as NPO - Lisinopril started as pain medication did not bring it down much 07/30 - Bp improved VTE: SCD's PPI: Protonix Next of KIN: Daughter- Yareli Paez [phone] Code status: SCO/DNR D/C plan: pending rehab placement Plan of care time > 40 minutes Code(s): I10 - ESSENTIAL (PRIMARY) HYPERTENSION
[2025-07-30] MEDS: HUMALOG SQ PRN (21:27)
[2025-07-31 05:57] LABS: Hematocrit 32.6 % (34.1-44.9); Hemoglobin 10.4 g/dL (11.2-15.7); Mean Corpuscular Hemoglobin 27.2 pg (25.6-32.2); Mean Corpuscular Hgb Concent. 31.9 g/dL (32.2-35.5); Platelet Count 358 x10^3/uL (182-369); Red Blood Count 3.82 x10^6/uL (3.93-5.22); White Blood Count 9.5 x10^3/uL (3.98-10.04)
[2025-07-31 06:22] LABS: Calcium 8.6 mg/dL (8.4-10.2); Carbon Dioxide 25.0 mmol/L (22-30); Creatinine 1 0.84 mg/dL (0.52-1.04); EST GLOMERULAR FILTRATION RATE 71.5 ML/MIN; Glucose 161.0 mg/dL (74-106); Potassium 3.5 mmol/L (3.5-5.1); SGOT/AST 17.0 U/L (14-36); SGPT/ALT 12.0 U/L (0-35); Total Protein 6.4 g/dL (6.3-8.2)
[2025-07-31 06:51] VITALS: BP 156/68; RESP 16; TEMP 98.3
[2025-07-31 08:23] VITALS: PULSE 74; O2SAT 98
--- NOTE | 2025-07-31 08:51 | PCM.DS ---
Discharge Summary Date of Admission: 07/29/25 08:15 Date of Discharge: 07/31/25 Admitting Physician: TOD DOMINGUEZ MD Consults: Consults on Case 07/29/25 13:59 Consult Podiatry ROUTINE Primary Care Provider: NO FAMILY DOCTOR Allergies Allergies No Known Drug Allergies Allergy (Verified 07/26/25 09:49) Hospital Summary - Hospital Course Hospital Course: The patient, a 79-year-old female with a history of dementia, strokes, cataracts, type II diabetes, cirrhosis, and obesity, was admitted on 07/29/25 for right ankle revision surgery and is now medically stable for discharge. Post- operatively, her pain has been well controlled, and her right lower extremity remains wrapped. Podiatry has recommended discharge to rehab with a follow-up appointment in one week for rewrapping. She was successfully weaned off oxygen and should continue incentive spirometry. Her hemoglobin A1C is elevated at 11.18, and she will require IV insulin at discharge. Care management has arranged for placement, and she has been accepted to [facility]. Overall, the patient denies further concerns, and her discharge plan includes transfer to [facility], pain management, continuation of diabetic care with insulin, and podiatry follow-up. - Vitals & Intake/Output Vital Signs: Vital Signs Temperature 98.3 F 07/31/25 06:50 Pulse Rate 74 07/31/25 08:21 Respiratory Rate 16 07/31/25 08:21 Blood Pressure 156/68 07/31/25 06:50 O2 Sat by Pulse Oximetry 98 07/31/25 08:21 Intake & Output: Intake & Output 07/28/25 07/29/25 07/30/25 07/31/25 11:59 11:59 11:59 11:59 Intake Total 0 1091 1430 Output Total 20 1600 Balance -20 -509 1430 Weight 79.9 kg 79.9 kg - Lab Result Diagrams: 07/31/25 05:21 07/31/25 05:21 Lab Results-Last 24 Hrs: Lab Results-Last 24 Hours 07/30/25 07/30/25 07/30/25 Range/Units 11:29 16:37 21:12 WBC (3.98-10.04) x10^3/uL RBC (3.93-5.22) x10^6/uL Hgb (11.2-15.7) g/dL Hct (34.1-44.9) % MCV (79.4-94.8) fL MCH (25.6-32.2) pg MCHC (32.2-35.5) g/dL RDW (11.7-14.4) % Plt Count (182-369) x10^3/uL MPV (9.4-12.3) fL Sodium (135-145) mmol/L Potassium (3.5-5.1) mmol/L Chloride (98-107) mmol/L Carbon Dioxide (22-30) mmol/L Anion Gap (5-15) MEQ/L BUN (7-17) mg/dL Creatinine (0.52-1.04) mg/dL Estimated GFR ML/MIN Glucose (74-106) mg/dL POC Glucometer 156 H 149 H 235 H (74 to 106) mg/dL Calcium (8.4-10.2) mg/dL Total Bilirubin (0.2-1.3) mg/dL AST (14-36) U/L ALT (0-35) U/L Alkaline Phosphatase (38-126) U/L Serum Total Protein (6.3-8.2) g/dL Albumin (3.5-5.0) g/dL 07/31/25 07/31/25 07/31/25 Range/Units 05:21 05:21 07:29 WBC 9.5 (3.98-10.04) x10^3/uL RBC 3.82 L (3.93-5.22) x10^6/uL Hgb 10.4 L (11.2-15.7) g/dL Hct 32.6 L (34.1-44.9) % MCV 85.3 (79.4-94.8) fL MCH 27.2 (25.6-32.2) pg MCHC 31.9 L (32.2-35.5) g/dL RDW 13.4 (11.7-14.4) % Plt Count 358 (182-369) x10^3/uL MPV 10.0 (9.4-12.3) fL Sodium 137 (135-145) mmol/L Potassium 3.5 (3.5-5.1) mmol/L Chloride 103 (98-107) mmol/L Carbon Dioxide 25 (22-30) mmol/L Anion Gap 12.8 (5-15) MEQ/L BUN 15 (7-17) mg/dL Creatinine 0.84 (0.52-1.04) mg/dL Estimated GFR 71.5 ML/MIN Glucose 161 H (74-106) mg/dL POC Glucometer 148 H (74 to 106) mg/dL Calcium 8.6 (8.4-10.2) mg/dL Total Bilirubin 0.50 (0.2-1.3) mg/dL AST 17 (14-36) U/L ALT 12 (0-35) U/L Alkaline Phosphatase 99 (38-126) U/L Serum Total Protein 6.4 (6.3-8.2) g/dL Albumin 3.5 (3.5-5.0) g/dL Micro Results-Entire Visit: Accuchecks Date 07/31/25 Date 07/30/25 Date 07/30/25 Date 07/30/25 Date 07/30/25 Time 07:33 Time 16:50 Time 16:50 Time 14:19 Time 11:50 - Radiology Exams Ordered Rad Exams-Entire Visit: Radiology Procedures Category Date Time Status ANKLE (3 VIEWS) Routine Exams 07/29/25 08:33 Completed CHEST 1 VIEW (PORTABLE) Urgent Exams 07/29/25 12:22 Completed FLUOROSCOPY UP TO 1 HR Routine Exams 07/29/25 08:33 Completed - Procedures and Test Procedures and Tests throughout Hospitalization: Therapy Orders & Screens 07/29/25 09:54 PT Eval & Treat ( Order) ONCE Reason for Eval:: Right ankle fx Diagnosis: fractured ankle right 07/29/25 17:15 Oxygen Nasal Cannula 3 lpm Comment: Diagnosis: fractured ankle right Discharge Exam General Appearance: no apparent distress, alert Neurologic Exam: alert, oriented x 3, cooperative, normal mood/affect, nml cerebellar function, sensation nml, No motor deficits Eye Exam: PERRL, EOMI, eyes nml inspection Ears, Nose, Throat Exam: normal ENT inspection, pharynx normal, moist mucous membranes Neck Exam: normal inspection, non-tender, supple, full range of motion Respiratory Exam: normal breath sounds, lungs clear, No respiratory distress Cardiovascular Exam: regular rate/rhythm, normal heart sounds Gastrointestinal/Abdomen Exam: soft, No tenderness, No mass Pelvic Exam: deferred Rectal Exam: deferred Back Exam: normal inspection, normal range of motion, No CVA tenderness, No vertebral tenderness Extremity Exam: normal inspection, normal range of motion, limited range of motion (Right ankle- wrapped), tenderness Skin Exam: normal color, warm, dry Wound Assessment: Skin/Wound Assessment Wound/Incision Assessment Start: 07/29/25 09:03 Text: Status: Active Freq: Q6H Protocol: Document 07/31/25 01:50 (Rec: 07/31/25 01:50 [id number]) Wound/Incision Assessment Right Ankle Wound Assessment Shift Assessment Wound Type Incision Dressing Status Dry & Intact Drainage Amount None Comment cdi Final Diagnosis/Problem List - Final Discharge Diagnosis/Problem (1) Bimalleolar ankle fracture Current Visit: No Status: Acute Code(s): S82.843A - DISPLACED BIMALLEOLAR FRACTURE OF UNSP LOWER LEG, INIT (2) Type II diabetes mellitus Current Visit: Yes Status: Chronic (3) Dehydration Current Visit: Yes Status: Acute Code(s): E86.0 - DEHYDRATION (4) HTN (hypertension) Current Visit: Yes Status: Acute Assessment & Plan: (1) Bimalleolar ankle fracture Current Visit: No Status: Acute Qualifiers: Encounter type: subsequent encounter Laterality: right Assessment & Plan: - Revision per podiatry- surgery scheduled today - Podiatry consult - Narcotic pain medication IV as pt is currently NPO - PT eval and treat- post OP 07/30 - POD #2 - OK per podiatry for pt to d/c to rehab when ready and f/u in 1 week to have ankle rewrapped - CBC, CMP reviewed - ASA, Oxy IR, Levaquin per podiatry orders 07/31 - POD #3 - CBC, CMP reviewed - D/C to [facility] for rehab Code(s): S82.843A - DISPLACED BIMALLEOLAR FRACTURE OF UNSP LOWER LEG, INIT (2) Type II diabetes mellitus Current Visit: Yes Status: Chronic Qualifiers: Diabetes mellitus long-term insulin use: 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 - Narcotic pain med- IV for now as NPO - Lisinopril started as pain medication did not bring it down much 07/30 - Bp improved D/C plan of care time: : 35 minutes D/C med: insulin S/S, tylelnol, docusate, lisinopril, Leviaquin, Oxy-IR Code(s): I10 - ESSENTIAL (PRIMARY) HYPERTENSION - Discharge Discharge Date: 07/31/25 ([facility]) Disposition: XFER OTHER Condition: Stable Prescriptions: New Docusate Sodium 100 mg [Docusate Sodium 100 MG] 100 mg PO BIDPRN PRN 30 Days #60 cap PRN Reason: Constipation Levofloxacin [Levofloxacin 500 MG Tablet] 500 mg PO DAILY 7 Days #7 tablet Oxycodone HCl 5 mg Ir [Oxy-IR 5 MG] 7.5 mg PO Q6H/PRN PRN 3 Days #12 tablet MDD 4 PRN Reason: POST OP PAIN Acetaminophen 325 mg [Tylenol 325 mg] 650 mg PO Q6H PRN PRN 7 Days #30 tablet PRN Reason: Pain, Fever, Headache Lisinopril 10 mg [Zestril 10 MG] 10 mg PO DAILY 30 Days #30 tablet Continue Ketorolac Trometh 10 mg Tab [TORAdol 10 MG TABLET] 10 mg PO TID 5 Days #15 tablet Aspirin EC 325 mg [Ecotrin 325 MG] 325 mg PO DAILY Additional Instructions: [facility] Orders: PT/OT Eval & Treat NWB to Right Extremity Do not alter dressing. Keep dressing Clean, Dry, & Intact. May reinforce only. ACHS ACCU Checks 1999 Carb Consistent Diet See Attached Med List for current med orders Follow up with: RADHA PAGAN DPM [[facility] STAFF, PODIATRY] - 08/05/25 8:00 am
== END 2025-07-31 11:56 | DRG 494 ==
LOC: SDC 08:04 → MED SURG 08:15 → OBSVTOIN 08:15
PROVIDERS: ADMIT Internal Medicine; ATTEND Internal Medicine
PROC: 0QSG04Z Reposition Right Tibia with Internal Fixation Device, Open Approach (ICD-10-PCS; principal; 2025-07-29)
PROC: 0SSF0ZZ Reposition Right Ankle Joint, Open Approach (ICD-10-PCS; 2025-07-29)
PROC: 0SJF4ZZ Inspection of Right Ankle Joint, Percutaneous Endoscopic Approach (ICD-10-PCS; 2025-07-29)
DX: S82.851A Displaced trimalleolar fracture of right lower leg, initial encounter for closed fracture (principal); S93.431A Sprain of tibiofibular ligament of right ankle, initial encounter; F03.90 Unspecified dementia, unspecified severity, without behavioral disturbance, psychotic disturbance, mood disturbance, and anxiety; W19.XXXA Unspecified fall, initial encounter; E86.0 Dehydration; I10 Essential (primary) hypertension; E11.9 Type 2 diabetes mellitus without complications; M25.571 Pain in right ankle and joints of right foot; E11.65 Type 2 diabetes mellitus with hyperglycemia; R26.2 Difficulty in walking, not elsewhere classified; Z86.73 Personal history of transient ischemic attack (TIA), and cerebral infarction without residual deficits; Z79.899 Other long term (current) drug therapy
CPT/HCPCS: 27822; 27829; 29895; 36415; 71045; 73610; 76000; 80053; 82947; 84134; 85027; 94760; 97161; 99232; C1713; Q3014